=== PATIENT | male | born 1970 | race Caucasian/White ===

== ENCOUNTER 2017-05-14 22:23 | Emergency (ER) | payer BC ==
[2017-05-14 22:28] VITALS: RESP 18
[2017-05-14 23:02] LABS: Basophils % (A) 0 %; CH 31.4; CHCM 35.8; Eosinophils # (A) 0.3 k/uL (0-0.7); Eosinophils % (A) 3 %; HCT 45.5 % (39.0-53.0); HDW 2.55; HGB 16.1 gm/dL (13.0-17.5); Luc # (Auto) 0.15; Luc % (Auto) 2; Lymphocytes # (A) 2.6 k/uL (1.0-4.8); Lymphocytes % (A) 27 %; MCH 31.1 pg (25.0-35.0); MCHC 35.3 g/dL (31.0-37.0); MCV 88.1 fL (80.0-100.0); Mean Platelet Volume 7.3; Monocytes # (A) 0.7 k/uL (0-1.0); Monocytes % (A) 7 %; Neutrophils # (A) 5.9 k/uL (1.3-7.7); Neutrophils % (A) 61 %; RBC 5.17 m/uL (4.30-5.90); RDW 13.3 % (11.5-15.5); WBC 9.6 k/uL (3.8-10.6); WBC (Perox) 9.04
[2017-05-14 23:10] LABS: ALT 30 U/L (21-72); AST 22 U/L (17-59); Alkaline Phosphatase 52 U/L (38-126); Anion Gap 8 mmol/L; Blood Urea Nitrogen 14 mg/dL (9-20); Calcium 9.4 mg/dL (8.4-10.2); Carbon Dioxide 26 mmol/L (22-30); Chloride 105 mmol/L (98-107); Glucose 89 mg/dL (74-99); Magnesium 1.7 mg/dL (1.6-2.3); Non-African American GFR(MDRD) >60 (>60 ml/min/1.73 sqM); Potassium 4.1 mmol/L (3.5-5.1); Sodium 139 mmol/L (137-145); Total Bilirubin 0.6 mg/dL (0.2-1.3); Total Protein 6.4 g/dL (6.3-8.2)
--- NOTE | 2017-05-14 23:10 | ED ---
Chest Pain HPI - General Chief Complaint: Chest Pain Stated Complaint: chest pressure Time Seen by Provider: 05/14/17 22:34 Source: patient Mode of arrival: wheelchair Limitations: no limitations - History of Present Illness Initial Comments: This patient is a 46-year-old man who presents to be evaluated for left-sided chest pains that have been going on intermittently since they started yesterday early in the day. The patient indicates that the pain feels "like someone is putting 50 pounds on my chest ," and that it lasts about 10 seconds when it comes on though it keeps recurring throughout the past 2 days. The patient has not noted any worsening or any relieving factors. He does not relate it to exertion. The patient has not had any associated symptoms. MD Complaint: chest pain Onset/Timin -: days(s) Onset: during rest Pain Location: left chest Pain Radiation: none Severity: mild Quality: heaviness Consistency: intermittent Improves With: nothing Worsens With: nothing Treatments Prior to Arrival: none - Related Data Home Medications Medication Instructions Recorded Confirmed Eplerenone 50 mg PO HS 10/03/15 05/14/17 Lisinopril [Zestril] 20 mg PO BID 10/03/15 05/14/17 Simvastatin [Simvastatin] 80 mg PO HS 08/08/16 05/14/17 Allopurinol [Zyloprim] 100 mg PO DAILY 05/14/17 05/14/17 Aspirin 650 mg PO ONCE PRN 05/14/17 05/14/17 Cyclobenzaprine [Flexeril] 10 mg PO DAILY PRN 05/14/17 05/14/17 Allergies Allergy/AdvReac Type Severity Reaction Status Date / Time No Known Allergies Allergy Verified 05/14/17 22:41 Review of Systems ROS Statement: Those systems with pertinent positive or pertinent negative responses have been documented in the HPI. ROS Other: All systems not noted in ROS Statement are negative. Constitutional: Denies: fever, chills, weakness Respiratory: Denies: cough, dyspnea, wheezes, hemoptysis Cardiovascular: Reports: chest pain. Denies: palpitations, dyspnea on exertion , orthopnea, edema, syncope Gastrointestinal: Denies: abdominal pain, nausea, vomiting Genitourinary: Denies: dysuria, hematuria Musculoskeletal: Denies: back pain Skin: Denies: rash Neurological: Denies: headache, weakness, numbness EKG Findings - EKG Results: EKG: interpreted by ERMD, sinus rhythm, normal axis, normal QRS, normal ST/T, no acute changes EKG shows: bradycardia (Rate approximately 54 bpm) - MO, Pacemaker, Normal: Normal tracing: normal tracing Past Medical History Past Medical History: Cancer, Hyperlipidemia, Hypertension, Renal Disease Additional Past Medical History / Comment(s): FSGS-Kidney disease; Skin cancer History of Any Multi-Drug Resistant Organisms: None Reported Additional Past Surgical History / Comment(s): KIDNEY BIOPSY Past Psychological History: No Psychological Hx Reported Smoking Status: Never smoker Past Alcohol Use History: Occasional Past Drug Use History: None Reported General Exam Limitations: no limitations General appearance: alert, in no apparent distress Head exam: Present: atraumatic, normocephalic Eye exam: Present: normal appearance. Absent: scleral icterus, conjunctival injection ENT exam: Present: normal oropharynx Neck exam: Present: normal inspection Respiratory exam: Present: normal lung sounds bilaterally. Absent: respiratory distress, wheezes, rales, rhonchi, stridor, chest wall tenderness, accessory muscle use, decreased breath sounds, prolonged expiratory Cardiovascular Exam: Present: regular rate, normal rhythm, normal heart sounds. Absent: systolic murmur, diastolic murmur, rubs, gallop GI/Abdominal exam: Present: soft. Absent: distended, tenderness, guarding, rebound, mass, pulsatile mass, hernia Extremities exam: Present: normal inspection, normal capillary refill. Absent: pedal edema, calf tenderness Back exam: Present: normal inspection. Absent: CVA tenderness (R), CVA tenderness (L) Neurological exam: Present: alert Skin exam: Present: warm, dry, intact, normal color. Absent: rash Course Vital Signs 05/14/17 05/14/17 05/14/17 22:25 22:49 23:40 Temperature 98.2 F Pulse Rate 61 54 L Respiratory 18 18 18 Rate Blood Pressure 170/101 137/80 O2 Sat by Pulse 100 97 Oximetry Chest Pain MDM - MDM Patient states that he is feeling well and would like to follow-up as an outpatient. Discussed the need to have a stress test in the near term. Discussed the need to return should any of his symptoms recur or if he develops other symptoms. Disposition Clinical Impression: Chest pain Disposition: ADMITTED IP TO THIS HOSP Condition: Good Instructions: Chest Pain (ED) Referrals: Kalyn Crockett MD [Primary Care Provider] - 1-2 days
[2017-05-14 23:11] LABS: Partial Thromboplastin Time 24.3 sec (22.0-30.0); Prothrombin Time 9.8 sec (9.0-12.0)
--- NOTE | 2017-05-14 23:21 | XR ---
INDICATION: Chest pain COMPARISON: None. FINDINGS: Frontal and lateral views of the chest are obtained. Heart size and pulmonary vascularity are normal. There is no consolidation, effusion, or pneumothorax. Limited skeletal evaluation demonstrates no acute findings. IMPRESSION: No acute cardiopulmonary disease.
[2017-05-14 23:29] LABS: Creatine Kinase 183 U/L (55-170)
[2017-05-14 23:41] LABS: Creatine Kinase MB 1.9 ng/mL (0.0-2.4); Troponin I <0.012 ng/mL (0.000-0.034)
[2017-05-15] MEDS ORDERED: NITROGLYCERIN SL TABS 0.4 MG TAB SUBLINGUAL PRN (00:28)
[2017-05-15] MEDS ORDERED: CYCLOBENZAPRINE 5 MG TAB PO PRN (00:30)
[2017-05-15 01:11] VITALS: BP 144/91; PULSE 53; TEMP 98.1
[2017-05-15] MEDS ORDERED: ALLOPURINOL 100 MG TAB PO SCH (09:00)
[2017-05-15] MEDS ORDERED: LISINOPRIL 20 MG TAB PO SCH (09:00)
[2017-05-15] MEDS ORDERED: NON-FORMULARY DRUG (Simvastatin [Simvastatin] 80 MG) PO SCH (21:00)
[2017-05-15] MEDS ORDERED: EPLERENONE 50 MG PO SCH (21:00)
[2017-05-16] MEDS ORDERED: ASPIRIN 325 MG TAB PO SCH (09:00)
== END 2017-05-15 01:09 | disposition other institution (70) ==
LOC: EC 22:23
DX: R07.9 Chest pain, unspecified (principal); I10 Essential (primary) hypertension; E78.5 Hyperlipidemia, unspecified; Z85.828 Personal history of other malignant neoplasm of skin; Z79.899 Other long term (current) drug therapy
CPT/HCPCS: 36415; 71020; 80053; 82550; 82553; 83735; 84484; 85025; 85610; 85730; 93005; 99285

== ENCOUNTER → 2017-08-20 | Outpatient (CLI) | payer BC ==
[2017-08-20 07:17] LABS: CH 30.7; CHCM 33.2; HCT 47.5 % (39.0-53.0); HDW 2.45; HGB 15.9 gm/dL (13.0-17.5); MCH 31.1 pg (25.0-35.0); MCHC 33.4 g/dL (31.0-37.0); RBC 5.11 m/uL (4.30-5.90); RDW 13.1 % (11.5-15.5); WBC 7.1 k/uL (3.8-10.6)
[2017-08-20 07:39] LABS: Anion Gap 9 mmol/L; Blood Urea Nitrogen 17 mg/dL (9-20); Carbon Dioxide 26 mmol/L (22-30); Chloride 104 mmol/L (98-107); Cholesterol 172 mg/dL (<200); Glucose 110 mg/dL (74-99); HDL Cholesterol 45 mg/dL (40-60); Non-African American GFR(MDRD) >60 (>60 ml/min/1.73 sqM); Phosphorus 2.7 mg/dL (2.5-4.5); Potassium 4.5 mmol/L (3.5-5.1); Sodium 139 mmol/L (137-145); Uric Acid 7.7 mg/dL (3.5-8.5)
== END | disposition home or self-care (01) ==
LOC: LABWHC1 06:44
PROVIDERS: ATTEND Internal Medicine
DX: N05.1 Unspecified nephritic syndrome with focal and segmental glomerular lesions (principal); R80.1 Persistent proteinuria, unspecified
CPT/HCPCS: 36415; 80061; 80069; 82570; 84156; 84550; 85027

== ENCOUNTER → 2023-04-05 | Outpatient (CLI) | payer BC ==
[2023-04-05 12:33] LABS: Creatinine,Urine Random 105.3 mg/dL
[2023-04-05 15:20] LABS: HCT 51.2 % (39.6-50.0); HGB 17.1 g/dL (13.0-17.0); MCH 30.4 pg (27.0-32.0); MCHC 33.4 g/dL (32.0-37.0); MCV 90.9 fL (80.0-97.0); Mean Platelet Volume 11.3 fL (9.5-12.2); NRBC Per 100 WBC 0 /100 WBCS (0.0-0.0); Platelet Count 216 X 10*3/uL (140-440); RBC 5.63 X 10*6/uL (4.40-5.60); RDW 13.5 % (11.5-14.5); WBC 9.21 X 10*3/uL (4.50-10.00)
[2023-04-05 15:33] LABS: African American GFR (CKD) 53.3 (60.0-200.0); Albumin 3.9 g/dL (3.8-4.9); Anion Gap 9.9 mmol/L (10.00-18.00); BUN/Creat Ratio 10.76 Ratio (12.00-20.00); Blood Urea Nitrogen 18.3 mg/dL (9.0-27.0); Calcium 9.3 mg/dL (8.7-10.3); Carbon Dioxide 26.1 mmol/L (20.0-27.5); Phosphorus 2.9 mg/dL (2.4-5.1); Potassium 4.6 mmol/L (3.5-5.5)
== END | disposition home or self-care (01) ==
LOC: LABWHC1 07:53
PROVIDERS: ATTEND Internal Medicine
DX: N25.81 Secondary hyperparathyroidism of renal origin (principal); N18.5 Chronic kidney disease, stage 5; D63.1 Anemia in chronic kidney disease; R80.1 Persistent proteinuria, unspecified
CPT/HCPCS: 36415; 80069; 82570; 84156; 85027